=== PATIENT | female | born 1980 | race African-American/Black ===

== ENCOUNTER 2018-01-04 06:09 | Day surgery (SDC) | payer BC, OTHER ==
[2018-01-03 11:19] VITALS: BMI 23.1
[2018-01-04] MEDS ORDERED: MIDAZOLAM HCL 2 MG/2 ML SINGLE DOSE VIAL ONE (07:21)
[2018-01-04] MEDS ORDERED: PROPOFOL 20 ML ONE ×2 (07:21→08:09)
[2018-01-04] MEDS ORDERED: SUCCINYLCHOLINE CHLORIDE 200 MG/10 ML VIAL ONE (07:21)
[2018-01-04] MEDS ORDERED: LIDOCAINE HCL/PF 2% SDV 5ML VIAL ONE (07:23)
[2018-01-04] MEDS ORDERED: KETOROLAC TROMETHAMINE 30 MG/1 ML VIAL ONE (07:23)
[2018-01-04] MEDS ORDERED: ONDANSETRON 4 MG/2 ML VIAL ONE (07:23)
[2018-01-04] MEDS ORDERED: DEXAMETHASONE SOD PHOSPHATE 4 MG/1 ML VIAL ONE (07:23)
[2018-01-04] MEDS ORDERED: MEPERIDINE HCL-PF 50 MG/ML VIAL ONE (08:53)
[2018-01-04] MEDS ORDERED: ONDANSETRON 4 MG/2 ML VIAL IVPUSH PRN (09:31)
[2018-01-04] MEDS ORDERED: oxyCODONE HCL 5 MG TABLET PO PRN (09:31)
[2018-01-04] MEDS ORDERED: LACTATED RINGERS SOLUTION 1,000 ML IV SCH (09:45)
--- NOTE | 2018-01-04 10:40 | OP ---
DATE OF OPERATION: 01/04/2018 ATTENDING SURGEON: Carey Short MD SUPPLY REQUIREMENTS OFFICER: Rosa Owen MD PREOPERATIVE DIAGNOSIS: This is a 37-year-old with missed at 9 weeks gestation. POSTOPERATIVE DIAGNOSIS: Missed . PROCEDURE: Suction dilation and curettage. ESTIMATED BLOOD LOSS: 100 mL. URINE OUTPUT: 25 mL. FLUID GIVEN: 750 mL. FINDINGS OF THE PROCEDURE: Ultrasound confirmation of failed intrauterine status post in vitro fertilization performed prior to the procedure. Ultrasound revealed gestational sac with crown-rump length and no heart tones detected. Findings confirmed with the patient, and it was agreed to proceed with the procedure. Findings also include anteverted uterus approximately 9 weeks size, no adnexal masses palpated, and dilatation and curettage performed without complication. DETAILS OF DESCRIPTION FOLLOW: The patient is a 37-year-old female who underwent in vitro fertilization with a fresh embryo transfer of 2 embryos. She was noted to have a positive test and was followed for her with ultrasounds revealing empty twin gestations with an empty gestational sac for sac B, and sac A was initially noted to have a crown-rump length that seemed to be measuring smaller than expected gestational age based on in vitro fertilization transfer date. Patient was followed. The fetus was found to have a heartbeat noted, measuring approximately 7 weeks and 1 day. Followup ultrasound at outside obstetric provider then revealed no heart rate, and this patient returned to the [place] office with confirmed no heart tones noted on ultrasound, no significant growth 1 week from last ultrasound. The patient was measuring 7 weeks and 1 day gestation. The patient was counseled at that time about failed intrauterine after IVF cycle and was diagnosed with a missed , and she was counseled about medication options, surgical options, or expected management, and she opted for surgical dilatation and curettage in the operating room. Patient then presented this morning to the operating room where she requested repeat confirmation via ultrasound. This was the 3rd ultrasound now confirming no heart tones in that primary gestational sac with the crown-rump length noted, but no heart tones noted. There was a very small secondary gestational sac with no pole noted within it. The patient was counseled and then agreed to proceed with the dilatation and curettage. She was then brought to the operating room where general anesthesia was achieved with an LMA. Airway without difficulty, the patient was then placed in Brenton stirrups in dorsal lithotomy position. She was then examined under anesthesia, noted to have an anteverted 8-9-weeks sized uterus. No adnexal masses palpated. She was then prepped and draped in the usual sterile surgical fashion. A red rubber catheter was then used to drain the bladder of 25 mL of urine prior to the start of the procedure. An open-sided speculum was then placed in the patients vagina, and the cervix was visualized. The anterior lip of the cervix was grasped with a single-tooth tenaculum. The patient was then serially dilated using Strong dilators in order to accommodate a 9-mm rigid suction cannula. The 9-mm suction cannula was then advanced through the cervical os into the uterus and suction was applied and dilatation and curettage was performed with removal of tissue. tissue noted removed on suction dilatation and curettage. Several passes were performed with suction cannula. The patient was noted to have a small amount of bleeding. Gentle sharp curettage was used to confirm gritty texture in all 4 quadrants, and a final pass with the suction curette was performed to remove all remaining clot from inside the uterine cavity. At this point, the uterus was observed and noted to have decreased bleeding, and the cervical os was hemostatic at the conclusion of the procedure. The tenaculum was removed and all other instruments were then removed from the patient, and the procedure was concluded. The patient again was noted to be hemostatic prior to the conclusion of the procedure. She was then returned to a supine position, and she was extubated without difficulty and taken to the recovery room in a stable condition. The specimen will be sent to pathology and will be also sent for cytogenetic analysis. The patient is noted to be Rh positive and does not need RhoGAM. The patient returned to the recovery room in a stable condition and postoperative course thus far is uncomplicated. This operative dictation was completed by Rosa Owen MD. CAREY SHORT M.D. [id number]
[2018-01-04 10:55] VITALS: BP 101/61; PULSE 66; TEMP 98
== END 2018-01-04 11:00 | disposition home or self-care (01) ==
LOC: FASU 06:09
PROVIDERS: ATTEND Obstetrics & Gynecology Reproductive Endocrinology
PROC: 10D17ZZ Extraction of Products of Conception, Retained, Via Natural or Artificial Opening (ICD-10-PCS; principal; 2018-01-04 08:21)
DX: O02.1 Missed abortion (principal)
CPT/HCPCS: 84703; 94760; J2175

== ENCOUNTER 2018-01-11 13:54 | Day surgery (SDC) | payer BC, OTHER ==
[2018-01-11 15:10] VITALS: BMI 23.1
[2018-01-11] MEDS ORDERED: MIDAZOLAM HCL 2 MG/2 ML SINGLE DOSE VIAL ONE (15:39)
[2018-01-11] MEDS ORDERED: ONDANSETRON 4 MG/2 ML VIAL ONE ×2 (15:40→16:28)
[2018-01-11] MEDS ORDERED: DEXAMETHASONE SOD PHOSPHATE 4 MG/1 ML VIAL ONE ×2 (15:40→16:28)
[2018-01-11] MEDS ORDERED: DOXYCYCLINE HYCLATE 100 MG VIAL ONE (15:45)
[2018-01-11] MEDS ORDERED: PROPOFOL 20 ML ONE (15:54)
[2018-01-11] MEDS ORDERED: SUCCINYLCHOLINE CHLORIDE 200 MG/10 ML VIAL ONE (15:54)
[2018-01-11] MEDS ORDERED: KETOROLAC TROMETHAMINE 30 MG/1 ML VIAL ONE ×2 (16:10→16:45)
[2018-01-11] MEDS ORDERED: ONDANSETRON 4 MG/2 ML VIAL IVPUSH PRN (16:48)
[2018-01-11] MEDS ORDERED: IBUPROFEN 600 MG TABLET (FP) PO PRN (16:48)
[2018-01-11] MEDS ORDERED: LACTATED RINGERS SOLUTION 1,000 ML IV SCH (17:00)
[2018-01-11] MEDS ORDERED: KETOROLAC TROMETHAMINE 30 MG/1 ML VIAL IVPUSH ONE (17:03)
[2018-01-11] MEDS ORDERED: oxyCODONE HCL 5 MG TABLET PO PRN ×2 (17:03)
[2018-01-11] MEDS ORDERED: ACETAMINOPHEN 325 MG TABLET (FP) ONE (19:16)
[2018-01-11 20:08] VITALS: BP 111/62; PULSE 64; TEMP 97.9
--- NOTE | 2018-01-12 07:10 | OP ---
DATE OF OPERATION: 01/11/2018 PREOPERATIVE DIAGNOSIS: Retained products of conception. POSTOPERATIVE DIAGNOSIS: Retained products of conception. PROCEDURE: Suction dilation and curettage under ultrasound guidance. ATTENDING SURGEON: Elias Parks MD OUTSOLE CASER FELLOW: Dr. Remington Pham. BLOOD LOSS: Approximately 50 mL. FLUIDS: Normal saline solution, 200. URINE OUTPUT: Less than 50 mL. COMPLICATIONS: None. PROCEDURE FOLLOWS: The patient was taken to the operating room where her general anesthesia was found to be adequate. She was prepped and draped in the normal sterile fashion and placed in the dorsal lithotomy position. A pelvic exam revealed an anteverted uterus, which was approximately 7-8 weekss size. On ultrasound, there appeared to be some blood clots and possible products within the cavity. A speculum was then placed in the patients vagina, and the single-tooth tenaculum was used to grasp the anterior cervix. The cervix was dilated to fit a No. 7 curettage. The curettage was inserted up to the fundus and then suction was initiated until green zone was reached. We then proceeded with a suction curettage to evacuate the contents of the endometrial cavity. The suction curettage was then removed, and we proceeded with a sharp curettage. A small amount of tissue was removed at that point, and this was followed by one last pass using the suction curettage. This ended the procedure. All instruments were removed. The procedure was done completely under ultrasound guidance. The patient was taken to the recovery room in stable condition. Sponge, lap, and instrument counts were correct x2. This operative note was completed by Dr. Remington Pham. Triston [id number]
--- NOTE | 2018-01-20 13:33 | PATH ---
Surgical Pathology Report Patient Name: MARK VELASQUEZ [facility]. Rec. #: [id number] /Age/Gender: 1980 (Age: 37) / F Account: [id number] Location: [facility] AMBUL[facility]ORY Taken: 01/11/2018 Received: 01/11/2018 Reported: 01/20/2018 Physicians: Elias Parks M.D. Specimen(s) Received RETAINED PRODUCTS OF CONCEPTION Clinical History Missed Final Diagnosis RETAINED PRODUCTS OF CONCEPTION, D&C: NECROTIC DECIDUA, INACTIVE ENDOMETRIUM AND BLOOD CLOT. Comment: See also prior products of conception D&C report ([id number]; 01/04/18). Electronically Signed Kenyetta Webb M.D. Gross Description Received in formalin labeled "retained products of conception," is a 7.0 x 6.5 x 1.0 cm aggregate of thomas-brown soft tissue fragments. No definite villous tissue or somatic tissue is identified. Clearing Supervisor portions are submitted in 5 cassettes. /01/13/2018 saudi01/13/2018
== END 2018-01-11 19:50 | disposition home or self-care (01) ==
LOC: FASU 13:54
PROVIDERS: ATTEND Obstetrics & Gynecology Reproductive Endocrinology
PROC: 10D17ZZ Extraction of Products of Conception, Retained, Via Natural or Artificial Opening (ICD-10-PCS; principal; 2018-01-11 16:11)
DX: O73.1 Retained portions of placenta and membranes, without hemorrhage (principal); O02.1 Missed abortion
CPT/HCPCS: 84703; 88305-TC; 94760